=== PATIENT | female | born 1945 | race Asian ===

== ENCOUNTER → 2017-09-25 | Outpatient (CLI) | payer OTHER ==
[~2017-09-25] MED LIST: ATOR40TA78 PO; AZIT500T5 PO; GUAI5SYR PO; LISI40TA PO; METF500T5 PO; TRAM50TA2 PO
== END | disposition home or self-care (01) ==
LOC: RAD 17:20
PROVIDERS: ATTEND Family Medicine
DX: J20.9 Acute bronchitis, unspecified (principal)
CPT/HCPCS: 71046